=== PATIENT | female | born 1970 | race Caucasian/White ===

== ENCOUNTER 2017-09-02 13:37 | Emergency (ER) | payer OTHER ==
[~2017-09-02] VITALS: Ht 167.6 cm; Wt 83.5 kg
[2017-09-02] MEDS ORDERED: HYZAAR 100-12.1 EACH (14:06)
[2017-09-02] MEDS ORDERED: SYNTHROID75 MCG (14:06)
[2017-09-02] MEDS ORDERED: CRESTOR10 MG (14:06)
== END 2017-09-02 16:14 | disposition home or self-care (01) ==
LOC: ER 13:37
DX: S91.241A Puncture wound with foreign body of right great toe with damage to nail, initial encounter (principal); W22.8XXA Striking against or struck by other objects, initial encounter; Y93.89 Activity, other specified; Y92.89 Other specified places as the place of occurrence of the external cause; Y99.8 Other external cause status